=== PATIENT | male | born 1980 | race Caucasian/White ===

== ENCOUNTER → 2016-04-14 | Outpatient (CLI) | payer OTHER ==
--- NOTE | 2016-04-15 07:48 | US ---
EXAMINATION TYPE: US mass soft tissue chest/back DATE OF EXAM: 04/14/2016 4:09 PM COMPARISON: CT 2015 CLINICAL HISTORY: palpable mass right mid axillary line at level of last palpable rib pt scanned lld Impression: probable lipoma, non vascular mass 5.1 x 2.6 x 5.1 cm solid mass
== END | disposition home or self-care (01) ==
LOC: RADUSWWP 15:37
PROVIDERS: ATTEND Internal Medicine
DX: R22.2 Localized swelling, mass and lump, trunk (principal)

== ENCOUNTER 2016-07-18 06:41 | Day surgery (SDC) | payer BC, SELFPAY ==
[2016-07-17 10:09] VITALS: BMI 37.5
[~2016-07-18 06:41] MED LIST: DEXAMETHASONE SOD PHOSPHATE 10 MG/ML 1 ML VIAL IV ONE; HEPARIN SODIUM,PORCINE 5,000 UNIT/ML 1 ML VIAL SQ ONE; HYDROmorphone 1 MG/ML 1 ML SYRINGE IVP PRN; LACTATED RINGERS 1,000 ML IV SCH; MIDAZOLAM 2 MG/2 ML VIAL IV PRN; ONDANSETRON 4 MG/2 ML VIAL IVP ONE; Pre Op ABX Message 1 EACH MISC MISCELLANE ONE; SCOPOLAMINE 1.5MG/72HR PATCH TRANSDERM ONE
[2016-07-18 06:59] VITALS: TEMP 98.4
[2016-07-18] MEDS ORDERED: BUPIVACAIN-EPI 0.25%-1:200,000 30 ML VIAL SQ ONE (07:20)
--- NOTE | 2016-07-18 07:44 | P.GSHP ---
History of Present Illness H&P Date: 07/18/16 Chief Complaint: Right flank lipoma Patient today for excision of a lipoma in the right flank. It is increasing in size. It is mildly tender at times. He has not had this previously biopsy. It is enlarged since it was evaluated April. Past Medical History Past Medical History: No Reported History History of Any Multi-Drug Resistant Organisms: None Reported Past Surgical History: No Surgical Hx Reported Additional Past Surgical History / Comment(s): VASECTOMY Past Anesthesia/Blood Transfusion Reactions: No Reported Reaction Past Psychological History: No Psychological Hx Reported Smoking Status: Never smoker Past Alcohol Use History: None Reported Past Drug Use History: None Reported - Past Family History Father Family Medical History: Cancer Additional Family Medical History / Comment(s): PANCREATIC Medications and Allergies Home Medications Medication Instructions Recorded Confirmed Type No Known Home Medications [No 07/17/16 07/18/16 History Known Home Medications] Allergies Allergy/AdvReac Type Severity Reaction Status Date / Time No Known Allergies Allergy Verified 07/18/16 07:18 Surgical - Exam Vital Signs Temp Pulse Resp BP Pulse Ox 98.4 F 85 18 139/85 98 07/18/16 06:58 07/18/16 06:58 07/18/16 06:58 07/18/16 06:58 07/18/16 06:58 Physical exam: General: Well-developed, well-nourished HEENT: Normocephalic, sclerae nonicteric Abdomen: Nontender, nondistended, right flank with large lipomatous mass measuring approximately 6 x 7 cm Extremities: No edema Neuro: Alert and oriented Assessment and Plan (1) Lipoma Narrative/Plan: We'll proceed with surgical excision at this time. Status: Acute
[2016-07-18] MEDS ORDERED: PROPOFOL 10 MG/ML 20 ML VIAL IV ONE (07:57)
[2016-07-18] MEDS ORDERED: MIDAZOLAM 2 MG/2 ML VIAL ONE (07:57)
[2016-07-18] MEDS ORDERED: LIDOCAINE 1% INJ 10MG/ML (20 ML MDV) ONE (07:57)
[2016-07-18] MEDS ORDERED: fentaNYL (PF) 50 MCG/ML 2 ML AMP ONE (07:57)
[2016-07-18] MEDS ORDERED: KETAMINE 10 MG/ML 20 ML VIAL ONE (07:57)
[2016-07-18 08:44] VITALS: RESP 16
[2016-07-18] MEDS ORDERED: NALOXONE 0.4 MG/ML 1 ML VIAL IV PRN (09:06)
[2016-07-18] MEDS ORDERED: HYDROcodone/APAP 5-325MG 1 EACH TAB PO PRN (09:06)
--- NOTE | 2016-07-18 09:09 | P.PCN ---
Date of Procedure: 07/18/16 Procedure(s) Performed: PREOPERATIVE DIAGNOSIS: Right flank lipoma POSTOPERATIVE DIAGNOSIS: Same PROCEDURE: Excision SURGEON: Meena EBL: Minimal ANESTHESIA: Quoc COMPLICATIONS: None OPERATIVE PROCEDURE: Patient was placed in the left decubitus position. He was sedated per anesthesia. The area was prepped and draped. The skin was localized with Marcaine. A horizontal incision was made overlying the palpable mass. Subcutaneous tissues were divided using electrocautery. The patient's lipomatous mass was easily identified. This was able to be for the most part bluntly dissected away from its surrounding structures. Electrocautery was also used sparingly. The lipomatous mass did seem to penetrate the fascia of the lower rib cage. This was thought to be fully excised just below the fascia. Sent pathology for close examination. This measured approximately 6 x 7 cm. The saphenous tissues were closed using 3-0 Vicryl sutures. The skin was closed using a running 4-0 Monocryl stitch. Steri-Strips and sterile dressings were applied. DISPOSITION: Stable to recovery room
[2016-07-18 09:16] VITALS: BP 109/62; PULSE 87
== END 2016-07-18 09:42 | disposition home or self-care (01) ==
LOC: OR 06:41
PROVIDERS: ATTEND Surgery
DX: D17.1 Benign lipomatous neoplasm of skin and subcutaneous tissue of trunk (principal)
CPT/HCPCS: 88304; 21933; J2250; J1644; J1100; J2405; J2001; J3010; J2704

== ENCOUNTER 2017-10-01 16:06 | Emergency (ER) | payer BC, SELFPAY ==
[2017-10-01 17:07] VITALS: BP 128/90; PULSE 90; RESP 18; TEMP 98.3
--- NOTE | 2017-10-01 17:13 | ED ---
ENT HPI - General Chief complaint: ENT Stated complaint: Ear Pain Time Seen by Provider: 10/01/17 16:58 Source: patient, RN notes reviewed, old records reviewed Mode of arrival: ambulatory Limitations: no limitations - History of Present Illness Initial comments: This patient's a 37-year-old male presents emergency Department due to complaint of left-sided ear pain. Patient reports that he was swimming yesterday and started feeling can't fluid within the ear. Patient ports she's been doing [id number] drops LEFT EAR. Reports that he feels pressure within the left ear. Denies any sore throat. He reports no pain with range of motion of the jaw. Patient denies any recent fever, chills, shortness of breath , chest pain, back pain, abdominal pain, nausea vomiting, numbness or tingling, dysuria or hematuria, constipation or diarrhea, headaches or visual changes, or any other current symptoms - Related Data Previous Rx's Medication Instructions Recorded Amoxic-Pot Clav 875-125Mg 1 tab PO Q12HR #20 tablet 10/01/17 [Augmentin 875-125] Ciprofloxacin Ophth Soln [Cipro 5 drops LEFT EAR BID #1 bottle 10/01/17 Ophth Soln] Allergies Allergy/AdvReac Type Severity Reaction Status Date / Time No Known Allergies Allergy Verified 10/01/17 17:07 Review of Systems ROS Statement: Those systems with pertinent positive or pertinent negative responses have been documented in the HPI. ROS Other: All systems not noted in ROS Statement are negative. Past Medical History Past Medical History: No Reported History History of Any Multi-Drug Resistant Organisms: None Reported Past Surgical History: No Surgical Hx Reported Additional Past Surgical History / Comment(s): VASECTOMY Past Anesthesia/Blood Transfusion Reactions: No Reported Reaction Past Psychological History: No Psychological Hx Reported Smoking Status: Never smoker Past Alcohol Use History: None Reported Past Drug Use History: None Reported - Past Family History Father Family Medical History: Cancer Additional Family Medical History / Comment(s): PANCREATIC General Exam - General Exam Comments Initial Comments: 37-year-old male. Alert and oriented. No acute distress. Limitations: no limitations General appearance: alert, in no apparent distress Head exam: Present: atraumatic, normocephalic, normal inspection Eye exam: Present: normal appearance, PERRL, EOMI. Absent: scleral icterus, conjunctival injection, periorbital swelling ENT exam: Present: normal exam, normal oropharynx, mucous membranes moist, normal external ear exam. Absent: TM's normal bilaterally (His is erythematous left TM with effusion.) Neck exam: Present: normal inspection. Absent: tenderness, meningismus, lymphadenopathy Respiratory exam: Present: normal lung sounds bilaterally. Absent: respiratory distress, wheezes, rales, rhonchi, stridor Cardiovascular Exam: Present: regular rate, normal rhythm, normal heart sounds. Absent: systolic murmur, diastolic murmur, rubs, gallop, clicks GI/Abdominal exam: Present: soft, normal bowel sounds. Absent: distended, tenderness, guarding, rebound, rigid Extremities exam: Present: normal inspection, full ROM, normal capillary refill. Absent: tenderness, pedal edema, joint swelling, calf tenderness Back exam: Present: normal inspection Neurological exam: Present: alert, oriented X3, CN II-XII intact Psychiatric exam: Present: normal affect, normal mood Skin exam: Present: warm, dry, intact, normal color. Absent: rash Course Vital Signs 10/01/17 17:05 Temperature 98.3 F Pulse Rate 90 Respiratory 18 Rate Blood Pressure 128/90 O2 Sat by Pulse 98 Oximetry Medical Decision Making - Medical Decision Making 37-year-old male presents emergency Department chief complaint of left ear pain. Patient reports this occurred after swimming history. He has evidence of otitis media. Patient will be filed primary care physician.*Appointment to be drops and a minute. Patient is history plan will comply. Parents were discussed. Disposition Clinical Impression: Otitis media Disposition: HOME SELF-CARE Condition: Good Instructions: Earache (ED) Additional Instructions: Patient has tow picker a decongestant medication as well as take the antibiotic drops and antibiotics as prescribed. Follow-up with primary care physician. Return to emergency department if any alarming signs or symptoms occur. Prescriptions: Amoxic-Pot Clav 875-125Mg [Augmentin 875-125] 1 tab PO Q12HR #20 tablet Ciprofloxacin Ophth Soln [Cipro Ophth Soln] 5 drops LEFT EAR BID #1 bottle Is patient prescribed a controlled substance at d/c from ED?: No When asked, does pt state using other controlled substances?: No If prescribed controlled substance>3 days was MAPS reviewed?: No If opioid is for acute pain is fill amount 7 days or less?: No If Rx opioid, was Start Talking consent form obtained?: No Referrals: Cleopatra Mcgee MD [Primary Care Provider] - 1-2 days Time of Disposition: 17:11
== END 2017-10-01 17:26 | disposition home or self-care (01) ==
LOC: EC 16:06
DX: H66.92 Otitis media, unspecified, left ear (principal)
CPT/HCPCS: 99283

== ENCOUNTER 2023-09-01 16:33 | Emergency (ER) | payer BC ==
[2023-09-01 16:56] VITALS: RESP 18
--- NOTE | 2023-09-01 17:19 | ED ---
Extremity Problem HPI - General Source: patient, RN notes reviewed Mode of arrival: ambulatory Limitations: no limitations <Nicki Thompson - Last Filed: 09/01/23 17:18> <Mamta Franco - Last Filed: 09/01/23 23:54> <Yogesh Thompson - Last Filed: 09/02/23 05:07> - General Chief complaint: Extremity Problem,Nontraumatic Stated complaint: R finger pain Time Seen by Provider: 09/01/23 16:51 - History of Present Illness Initial comments: Kathleen marroquin is a 42-year-old male presents emergency department chief complaint of right hand pain. He states that he has been experiencing pain of the third and fourth DIP and PIP over the past few weeks. He denies any injury, recent trauma, bites. Denies recent antibiotic use. Denies any stages or loss of motor function. (Nicki Thompson) 42-year-old male presents to the emergency department for evaluation of right hand 3rd and 4th digit hand and swelling x 3 weeks. He states that it was initially just his ring finger but has progressed to his middle finger. He reports pain with extension of his 4th finger. He states that there has not been any injury or wounds to the area. He has not had any prior treatment for this issue. Denies fever, chills. (Mamta Franco) - Related Data Home Medications Medication Instructions Recorded Confirmed Ibuprofen [Motrin Ib] 200 - 400 mg PO Q6H PRN 10/01/17 10/01/17 Previous Rx's Medication Instructions Recorded Amoxic-Pot Clav 875-125Mg 1 tab PO Q12HR #20 tablet 10/01/17 [Augmentin 875-125] Ciprofloxacin Ophth Soln [Cipro 5 drops LEFT EAR BID #1 bottle 10/01/17 Ophth Soln] Cephalexin [Keflex] 500 mg PO Q6HR #40 cap 09/01/23 Ibuprofen 800 mg PO Q8H #12 tab 09/01/23 Allergies Allergy/AdvReac Type Severity Reaction Status Date / Time No Known Allergies Allergy Verified 09/01/23 16:54 Review of Systems ROS Other: All systems not noted in ROS Statement are negative. <Nicki Thompson - Last Filed: 09/01/23 17:18> ROS Other: All systems not noted in ROS Statement are negative. <Mamta Franco - Last Filed: 09/01/23 23:54> ROS Other: All systems not noted in ROS Statement are negative. <JayYogesh - Last Filed: 09/02/23 05:07> ROS Statement: Those systems with pertinent positive or pertinent negative responses have been documented in the HPI. Past Medical History Past Medical History: No Reported History History of Any Multi-Drug Resistant Organisms: None Reported Past Surgical History: No Surgical Hx Reported Additional Past Surgical History / Comment(s): VASECTOMY Past Anesthesia/Blood Transfusion Reactions: No Reported Reaction Past Psychological History: No Psychological Hx Reported Past Alcohol Use History: None Reported Past Drug Use History: None Reported - Past Family History Father Family Medical History: Cancer Additional Family Medical History / Comment(s): PANCREATIC <Nicki Thompson - Last Filed: 09/01/23 17:18> General Exam Limitations: no limitations <Nicki Thompson - Last Filed: 09/01/23 17:18> Limitations: no limitations General appearance: alert, in no apparent distress Head exam: Present: atraumatic, normocephalic, normal inspection Eye exam: Present: normal appearance, PERRL, EOMI. Absent: scleral icterus, conjunctival injection, periorbital swelling ENT exam: Present: normal exam, mucous membranes moist Neck exam: Present: normal inspection. Absent: tenderness, meningismus, lymphadenopathy Respiratory exam: Present: normal lung sounds bilaterally. Absent: respiratory distress, wheezes, rales, rhonchi, stridor Cardiovascular Exam: Present: regular rate, normal rhythm, normal heart sounds. Absent: systolic murmur, diastolic murmur, rubs, gallop, clicks Extremities exam: Present: full ROM, tenderness (ttp over the flexor surface of the 3rd and 4th digits of the right hand), normal capillary refill, other (radial pulses 2+, swelling to the 3rd and 4th digits of the right hand) Neurological exam: Present: alert, oriented X3 Psychiatric exam: Present: normal affect, normal mood Skin exam: Present: warm, dry, intact, normal color. Absent: rash <Mamta Franco - Last Filed: 09/01/23 23:54> - General Exam Comments Initial Comments: Visual Physical Exam Vital signs reviewed General: Well-appearing, nontoxic, no acute distress. Head: Normocephalic, atraumatic Eyes: PERRLA, EOMI ENT: Airway patent Chest: Nonlabored breathing Skin: No visual rash, normal skin tone Neuro: Alert and oriented 3 Musculoskeletal: No gross abnormalities (Nicki Thompson) Course Vital Signs 09/01/23 09/01/23 16:52 22:09 Temperature 98.2 F 98.1 F Pulse Rate 76 67 Respiratory 18 18 Rate Blood Pressure 153/96 142/92 O2 Sat by Pulse 96 96 Oximetry Medical Decision Making <Nicki Thompson - Last Filed: 09/01/23 17:18> - Lab Data Result diagrams: 09/01/23 20:49 09/01/23 20:49 <Mamta Franco - Last Filed: 09/01/23 23:54> - Lab Data Result diagrams: 09/01/23 20:49 09/01/23 20:49 <Yogesh Thompson - Last Filed: 09/02/23 05:07> - Medical Decision Making I completed the quick note portion of this chart signed Nicki Thompson PA-C (Nicki Thompson) Was pt. sent in by a medical professional or institution ([facility], [employer]ER, urgent care, hospital, or jail...) When possible be specific @ -No Did you speak to anyone other than the patient for history (EMS, parent, family, police, friend...)? What history was obtained from this source @ -No Did you review nursing and triage notes (agree or disagree)? Why? @ -I reviewed and agree with nursing and triage notes Were old charts reviewed (outside hosp., previous admission, EMS record, old EKG, old radiological studies, urgent care reports/EKG's, jail records)? Report findings @ -No old charts were reviewed Differential Diagnosis (chest pain, altered mental status, abdominal pain women, abdominal pain men, vaginal bleeding, weakness, fever, dyspnea, syncope, headache, dizziness, GI bleed, back pain, seizure, CVA, palpatations, mental health, musculoskeletal)? @ -Differential Musculoskeletal Muscular strain, contusion, ligament sprain, fracture, arthritis, septic arthritis, bursitis, cellulitis, muscle spasm, nerve compression, DVT, arterial occlusion, herpes zoster, electrolyte abnormality, tumor.... This is not meant to be in all inclusive list EKG interpreted by me (3pts min.). @ -None X-rays interpreted by me (1pt min.). @ -XR right hand shows no evidence of acute fracture or dislocation CT interpreted by me (1pt min.). @ -None done U/S interpreted by me (1pt. min.). @ -None done What testing was considered but not performed or refused? (CT, X-rays, U/S, labs)? Why? @ -None What meds were considered but not given or refused? Why? @ -None Did you discuss the management of the patient with other professionals (professionals i.e. DrMagdiel, PA, APPLICATIONS PACKAGER, lab, RT, psych nurse, forensic social worker, bods developer, te acher, supervisor dog license officer, child support case officer)? Give summary @ -No Was smoking cessation discussed for >3mins.? @ -No Was critical care preformed (if so, how long)? @ -No Were there social determinants of health that impacted care today? How? (Homelessness, low income, unemployed, alcoholism, drug addiction, transportation, low edu. Level, literacy, decrease access to med. care, penitentiary, rehab)? @ -No Was there de-escalation of care discussed even if they declined (Discuss DNR or withdrawal of care, Hospice)? DNR status @ -No What co-morbidities impacted this encounter? (DM, HTN, Smoking, COPD, CAD, C ancer, CVA, ARF, Chemo, Hep., AIDS, mental health diagnosis, sleep apnea, morbid obesity)? @ -None Was patient admitted / discharged? Hospital course, mention meds given and route, prescriptions, significant lab abnormalities, going to OR and other pertinent info. @ -Discharged. Patient presented to the emergency department for evaluation of right hand 3rd and 4th digit hand and swelling x 3 weeks. He states that it was initially just his ring finger but has progressed to his middle finger. XR obtained which showed no evidence of acute fracture or dislocation. Labs obtained including WBC which is within normal limits, CRP with very mild elevation at 1.9. Patient will be treated with anti-inflammatory medications, antibiotics, and advised follow up with hand specialist. Patient understanding and agreeable with plan. Patient stable at time of discharge. Case discussed with Dr. Thompson who also evaluated the patient and agrees with assessment and plan. Undiagnosed new problem with uncertain prognosis? @ -No Drug Therapy requiring intensive monitoring for toxicity (Heparin, Nitro, Insu agata, Cardizem)? @ -No Were any procedures done? @ -No Diagnosis/symptom? @ -Finger pain and swelling Acute, or Chronic, or Acute on Chronic? @ -acute Uncomplicated (without systemic symptoms) or Complicated (systemic symptoms)? @ -uncomplicated Side effects of treatment? @ -No Exacerbation, Progression, or Severe Exacerbation? @ -No Poses a threat to life or bodily function? How? (Chest pain, [place], NH, pneumonia, PE, COPD, DKA, ARF, appy, cholecystitis, CVA, Diverticulitis, Homicidal, Suic idal, threat to staff... and all critical care pts) @ -No (Mamta Franco) - Lab Data Lab Results 09/01/23 09/01/23 Range/Units 20:49 20:49 WBC 9.7 (3.8-10.6) k/uL RBC 5.02 (4.30-5.90) m/uL Hgb 15.2 (13.0-17.5) gm/dL Hct 42.0 (39.0-53.0) % MCV 83.7 (80.0-100.0) fL MCH 30.3 (25.0-35.0) pg MCHC 36.1 (31.0-37.0) g/dL RDW 12.4 (11.5-15.5) % Plt Count 308 (150-450) k/uL MPV 7.1 Neutrophils % 57 % Lymphocytes % 31 % Monocytes % 6 % Eosinophils % 4 % Basophils % 1 % Neutrophils # 5.6 (1.3-7.7) k/uL Lymphocytes # 3.0 (1.0-4.8) k/uL Monocytes # 0.6 (0-1.0) k/uL Eosinophils # 0.4 (0-0.7) k/uL Basophils # 0.1 (0-0.2) k/uL ESR 20 H (0-15) mm/Hr Sodium 139 (137-145) mmol/L Potassium 3.9 (3.5-5.1) mmol/L Chloride 103 (98-107) mmol/L Carbon Dioxide 28 (22-30) mmol/L Anion Gap 8 mmol/L BUN 15 (9-20) mg/dL Creatinine 0.95 (0.66-1.25) mg/dL Est GFR (CKD-EPI)AfAm >90 (>60 ml/min/1.73 sqM) Est GFR (CKD-EPI)NonAf >90 (>60 ml/min/1.73 sqM) Glucose 81 (74-99) mg/dL Calcium 9.1 (8.4-10.2) mg/dL Total Bilirubin 0.9 (0.2-1.3) mg/dL AST 48 (17-59) U/L ALT 80 H (4-49) U/L Alkaline Phosphatase 62 (38-126) U/L C-Reactive Protein 1.9 H (<1.0) mg/dL Total Protein 7.8 (6.3-8.2) g/dL Albumin 4.9 (3.5-5.0) g/dL Disposition <Nicki Thompson - Last Filed: 09/01/23 17:18> Is patient prescribed a controlled substance at d/c from ED?: No <Mamta Franco - Last Filed: 09/01/23 23:54> <Yogesh Thompson - Last Filed: 09/02/23 05:07> Clinical Impression: Finger pain, Finger swelling Disposition: HOME SELF-CARE Condition: Stable Instructions (If sedation given, give patient instructions): Tendinitis (ED) Additional Instructions: Please follow 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 Return to the emergency department for new or worsening symptoms. Prescriptions: Ibuprofen 800 mg PO Q8H #12 tab Cephalexin [Keflex] 500 mg PO Q6HR #40 cap Referrals: None,Stated [Primary Care Provider] - 1-2 days Ede Mitchell DO [Doctor of Osteopathic Medicine] - 1-2 days
--- NOTE | 2023-09-01 18:11 | XR ---
EXAMINATION TYPE: XR hand complete RT DATE OF EXAM: 09/01/2023 COMPARISON: NONE HISTORY: 42-year-old male pain of third and fourth digits, no injury TECHNIQUE: 3 views FINDINGS: No marginal erosions or soft tissue calcifications. No acute fracture, subluxation, disloca tion. IMPRESSION: No acute osseous abnormality seen.
[2023-09-01 21:08] LABS: Basophils # (A) 0.1 k/uL (0-0.2); Basophils % (A) 1 %; Eosinophils # (A) 0.4 k/uL (0-0.7); Eosinophils % (A) 4 %; HGB 15.2 gm/dL (13.0-17.5); Lymphocytes % (A) 31 %; MCH 30.3 pg (25.0-35.0); MCHC 36.1 g/dL (31.0-37.0); MCV 83.7 fL (80.0-100.0); Mean Platelet Volume 7.1; Monocytes # (A) 0.6 k/uL (0-1.0); Monocytes % (A) 6 %; Neutrophils # (A) 5.6 k/uL (1.3-7.7); Neutrophils % (A) 57 %; Platelet Count 308 k/uL (150-450); RBC 5.02 m/uL (4.30-5.90); RDW 12.4 % (11.5-15.5); WBC 9.7 k/uL (3.8-10.6)
[2023-09-01 21:10] LABS: ALT 80 U/L (4-49); AST 48 U/L (17-59); African American GFR (CKD) >90 (>60 ml/min/1.73 sqM); Albumin 4.9 g/dL (3.5-5.0); Alkaline Phosphatase 62 U/L (38-126); Anion Gap 8 mmol/L; Blood Urea Nitrogen 15 mg/dL (9-20); Calcium 9.1 mg/dL (8.4-10.2); Carbon Dioxide 28 mmol/L (22-30); Chloride 103 mmol/L (98-107); Glucose 81 mg/dL (74-99); Non-African American GFR(CKD) >90 (>60 ml/min/1.73 sqM); Sodium 139 mmol/L (137-145); Total Bilirubin 0.9 mg/dL (0.2-1.3); Total Protein 7.8 g/dL (6.3-8.2)
[2023-09-01 21:40] LABS: C Reactive Protein 1.9 mg/dL (<1.0)
[2023-09-01 21:45] LABS: Potassium 3.9 mmol/L (3.5-5.1)
[2023-09-01 22:11] VITALS: BP 142/92; PULSE 67; TEMP 98.1
[2023-09-02 03:58] LABS: Erythrocyte Sedimentation Rate 20 mm/Hr (0-15)
== END 2023-09-01 22:11 | disposition home or self-care (01) ==
LOC: EC 16:33
DX: M79.89 Other specified soft tissue disorders (principal)
CPT/HCPCS: 36415; 80053; 85025; 85652; 86140; 99283